=== PATIENT | female | born 1975 | race American Indian/Alaskan Native ===

== ENCOUNTER 2018-06-11 18:05 | Outpatient (CLI) | payer BC | END 2018-06-11 18:06 | disposition home or self-care (01) | LOC: RAD 18:05 | DX: N93.9 Abnormal uterine and vaginal bleeding, unspecified (principal) ==

== ENCOUNTER 2018-06-16 08:07 | Emergency (ER) | payer BC ==
[2018-06-16 08:55] VITALS: BMI 29.0
[2018-06-16 09:01] VITALS: BP 135/92; PULSE 79; RESP 18; TEMP 98.6; O2SAT 98
--- NOTE | 2018-06-16 10:02 | ED PDOC ---
Arrival/HPI - General Chief Complaint: Back Pain Historian: Patient - History of Present Illness Narrative History of Present Illness (Text): 06/16/18 09:52 Yanique Pitt is a 43 year old female, with no significant past medical history, who presents to the emergency department complaining of pleuritic mid back pain around the tip of her scapula since 2 days. Patient informs pain started on Thursday after picking something up off the floor. Patient states she thought it was a "muscle pain" and waited before presenting to the emergency department. Patient states pain worsened over time prompting her visit. Patient states pain is worsened when breathing and is not worsened at rest. Patient informs taking gas-ex and seltzer water with no improvement. Patient denies taking NSAIDS. Patient notes chills and nausea. Patient denies fevers, headache, dizziness, abdominal pain, vomiting, diarrhea, urinary or bowel changes, trauma, or any other complaint. Time/Duration: < week (2 days) Symptom Onset: Sudden Symptom Course: Worsening Quality: Stabbing (Sharp) Activities at Onset: Light Context: Home Past Medical History - Provider Review Nursing Documentation Reviewed: Yes - Cardiac Hx Cardiac Disorders: Yes Hx Hypertension: Yes - Psychiatric Hx Substance Use: Yes Family/Social History - Physician Review Nursing Documentation Reviewed: Yes Family/Social History: No Known Family HX Smoking Status: Never Smoked Hx Alcohol Use: Yes Hx Substance Use: Yes Substance used: marajuana Allergies/Home Meds Allergies/Adverse Reactions: Allergies No Known Allergies Allergy (Verified 06/16/18 09:01) Home Medications: Home Meds Medication Instructions Recorded Confirmed Lisinopril/Hydrochlorothiazide 1 tab PO DAILY 06/16/18 06/16/18 [Lisinopril-Hydrochlorothiazide 25 mg-20 mg] Review of Systems - Physician Review All systems were reviewed & negative as marked: Yes - Review of Systems Constitutional: Other (chills). absent: Fevers Gastrointestinal: Nausea. absent: Abdominal Pain, Stool Changes (no bowel changes), Diarrhea Genitourinary Female: absent: Frequency, Urine Output Changes Musculoskeletal: Back Pain (mid pleuritic back pain towards tip of scapula). absent: Other (no trauma) Neurological: absent: Headache, Dizziness Physical Exam Vital Signs Reviewed: Yes Vital Signs Temp Pulse Resp BP Pulse Ox 06/16/18 08:55 98.6 F 79 18 135/92 H 98 Temperature: Afebrile Blood Pressure: Normal Pulse: Regular Respiratory Rate: Normal Appearance: Positive for: Well-Appearing, Non-Toxic, Comfortable Pain Distress: None Mental Status: Positive for: Alert and Oriented X 3 - Systems Exam Head: Present: Atraumatic, Normocephalic Pupils: Present: PERRL Extroacular Muscles: Present: EOMI Conjunctiva: Present: Normal Mouth: Present: Moist Mucous Membranes Neck: Present: Normal Range of Motion Respiratory/Chest: Present: Clear to Auscultation, Good Air Exchange. No: Respiratory Distress, Accessory Muscle Use Cardiovascular: Present: Regular Rate and Rhythm, Normal S1, S2. No: Murmurs Abdomen: No: Tenderness, Distention, Peritoneal Signs Upper Extremity: Present: Normal ROM, Tenderness (tenderness to palpation to tip of scapula), Neurovascularly Intact. No: Cyanosis, Edema Lower Extremity: Present: Normal Inspection. No: Edema Skin: Present: Warm, Dry, Normal Color. No: Rashes Psychiatric: Present: Alert, Oriented x 3, Normal Insight, Normal Concentration Medical Decision Making ED Course and Treatment: 06/16/18 09:52 Impression: Patient is a 43 year old female who presents to the emergency department complaining of pleuritic mid back pain towards the tip of the scapula. Pain is not worsened at rest. Differential Diagnosis included but are not limited to: Plan: -- Flexeril -- Motrin -- Reassess and disposition Prior Visits: Notes and results from previous visits were reviewed. Progress Notes: - Medication Orders Current Medication Orders: Discontinued Medications Cyclobenzaprine HCl (Flexeril) 10 mg PO STAT STA Stop: 06/16/18 09:30 Last Admin: 06/16/18 09:45 Dose: 10 mg Ibuprofen (Motrin Tab) 600 mg PO STAT STA Stop: 06/16/18 09:30 Last Admin: 06/16/18 09:45 Dose: 600 mg - Scribe Statement The provider has reviewed the documentation as recorded by the Scribricky Brink All medical record entries made by the Lillyibricky were at my direction and personally dictated by me. I have reviewed the chart and agree that the record accurately reflects my personal performance of the history, physical exam, medical decision making, and the department course for this patient. I have also personally directed, reviewed, and agree with the discharge instructions and disposition. Disposition/Present on Arrival - Present on Arrival Any Indicators Present on Arrival: Yes History of DVT/PE: No History of Uncontrolled Diabetes: No Urinary Catheter: No History of Decub. Ulcer: No History Surgical Site Infection Following: None - Disposition Have Diagnosis and Disposition been Completed?: No Diagnosis: Musculoskeletal pain Disposition: HOME/ ROUTINE Disposition Time: 09:25 Condition: GOOD Discharge Instructions (ExitCare): Muscle Strain (DC) Additional Instructions: YANIQUE PITT, thank you for letting us take care of you today. The emergency medical care you received today was directed at your acute symptoms. If you were prescribed any medication, please fill it and take as directed. It may take several days for your symptoms to resolve. Return to the Emergency Department if your symptoms worsen, do not improve, or if you have any other problems. Please contact your doctor or call one of the physicians/clinics you have been referred to that are listed on the Patient Visit Information form that is included in your discharge packet. Bring any paperwork you were given at discharge with you along with any medications you are taking to your follow up visit. Our treatment cannot replace ongoing medical care by a primary care provider outside of the emergency department. Thank you for allowing the [facility] team to be part of your care today. Follow up with your primary care doctor in 3-5 days for re-evaluation and further management. Prescriptions: Cyclobenzaprine [Cyclobenzaprine HCl] 10 mg PO Q8 PRN #20 tab PRN Reason: Muscle Spasm Ibuprofen [Motrin] 600 mg PO Q6 PRN #20 tab PRN Reason: Pain, Moderate (4-7) Referrals: [facility] Rearmida, [Non-Staff] - Follow up with primary Forms: [place] (German), WORK NOTE
== END 2018-06-16 09:55 | disposition home or self-care (01) ==
LOC: ED 08:07
DX: M79.18 Myalgia, other site (principal); I10 Essential (primary) hypertension